=== PATIENT | male | born 1980 | race African-American/Black ===

== ENCOUNTER 2018-08-03 09:02 | Emergency (ER) | payer OTHER ==
[2018-08-03 09:08] VITALS: RESP 18; TEMP 98.1
[2018-08-03] MEDS ORDERED: IPRATROPIUM-ALBUTEROL 3 ML NEB INHALATION STA ×2 (09:21→10:16)
[2018-08-03] MEDS ORDERED: methylPREDNISolone SOD SUCCI 125 MG/2 ML VIAL IM STA (09:21)
--- NOTE | 2018-08-03 09:25 | ED ---
General Adult HPI - General Chief complaint: Shortness of Breath Stated complaint: asthma Time Seen by Provider: 08/03/18 09:18 Source: patient, RN notes reviewed Mode of arrival: ambulatory Limitations: no limitations - History of Present Illness Initial comments: Patient 38-year-old male presenting to the emergency room today with a chief complaint of increased cough congestion over the last 5-7 days. Patient does admit that it is his asthma acting up. States he ran out of his inhaler. States is new to the area and is trying to establish with a family doctor. Patient doesn't that he's had increased cough congestion production it's been white in color at times. Patient also admits to headache that started this morning after coughing bouts. Patient denies any other complaints or symptoms. Patient denies any recent fever, chills, chest pain, back pain, abdominal pain, nausea or vomiting, numbness or tingling, visual changes, or any other complaints. - Related Data Home Medications Medication Instructions Recorded Confirmed Albuterol Inhaler [Ventolin Hfa 2 puff INHALATION RT-Q6H PRN 08/03/18 08/03/18 Inhaler] Amoxicillin Unknown Dose 1 cap PO ONCE 08/03/18 08/03/18 Previous Rx's Medication Instructions Recorded Albuterol Inhaler [Ventolin Hfa 1 - 2 puff INHALATION Q4-6H PRN #1 08/03/18 Inhaler] inhaler Azithromycin [Zithromax] 500 mg PO DAILY 5 Days tab 08/03/18 predniSONE 50 mg PO DAILY #5 tab 08/03/18 Allergies Allergy/AdvReac Type Severity Reaction Status Date / Time shellfish derived [Shellfish] Allergy Anaphylaxis Verified 08/03/18 09:45 diphenhydramine AdvReac Rash/Hives Verified 08/03/18 09:45 [From Benadryl] Review of Systems ROS Statement: Those systems with pertinent positive or pertinent negative responses have been documented in the HPI. ROS Other: All systems not noted in ROS Statement are negative. Past Medical History Past Medical History: Asthma History of Any Multi-Drug Resistant Organisms: None Reported Past Surgical History: Ear Surgery, Orthopedic Surgery Past Psychological History: ADD/ADHD, Bipolar Smoking Status: Current every day smoker Past Alcohol Use History: Occasional Past Drug Use History: Marijuana General Exam - General Exam Comments Initial Comments: General: The patient is awake and alert, in no distress, and does not appear acutely ill. Eye: Pupils are equal, round and reactive to light. Extra-ocular movements are intact. No nystagmus. There is normal conjunctiva bilaterally. No signs of icterus. Ears, nose, mouth and throat: There are moist mucous membranes and no oral lesions. Neck: The neck is supple, there is no tenderness or JVD. Cardiovascular: There is a regular rate and rhythm. No murmur, rub or gallop is appreciated. Respiratory: Bilateral expiratory wheeze. respirations are non-labored, breath sounds are equal. No stridor, rales, or rhonchi. Musculoskeletal: Normal ROM, no tenderness. Sensation intact. Strength 5/5. Pulses equal bilaterally 2+. Neurological: A&O x 3. CN II-XII intact, There are no obvious motor or sensory deficits. Coordination appears grossly intact. Speech is normal. Skin: Skin is warm and dry and no rashes or lesions are noted. Psychiatric: Cooperative, appropriate mood & affect, normal judgment. Limitations: no limitations Course Vital Signs 08/03/18 08/03/18 08/03/18 09:03 09:38 09:48 Temperature 98.1 F Pulse Rate 99 88 92 Respiratory 18 Rate Blood Pressure 115/75 O2 Sat by Pulse 98 Oximetry 08/03/18 08/03/18 10:24 10:34 Temperature Pulse Rate 84 86 Respiratory Rate Blood Pressure O2 Sat by Pulse Oximetry Medical Decision Making - Medical Decision Making Chest x-ray reviewed negative for any sign of pneumonia. Patient does have improvement of lung sounds after 2 breathing treatments here in the emergency room. Was given dose of steroids. Patient will be continued on steroids, started on antibiotics for asthmatic bronchitis. Advised follow-up family physician return to emergency room if any symptoms increase worsen. Disposition Clinical Impression: Asthmatic bronchitis Disposition: HOME SELF-CARE Condition: Good Instructions: Acute Bronchitis (ED) Additional Instructions: Please use medication as discussed. Please follow-up with family doctor in the next 2 days of symptoms have not improved. Please return to emergency room if the symptoms increase or worsen or for any other concerns. Prescriptions: Albuterol Inhaler [Ventolin Hfa Inhaler] 1 - 2 puff INHALATION Q4-6H PRN #1 inhaler PRN Reason: Cough Azithromycin [Zithromax] 500 mg PO DAILY 5 Days tab predniSONE 50 mg PO DAILY #5 tab Is patient prescribed a controlled substance at d/c from ED?: No Referrals: None,Stated [Primary Care Provider] - 1-2 days Libby Montenegro MD [STAFF PHYSICIAN] - 1-2 days Mario Pollack MD [STAFF PHYSICIAN] - 1-2 days Time of Disposition: 10:47
[2018-08-03] MEDS ORDERED: ACETAMINOPHEN TAB 500 MG TAB PO STA (09:59)
--- NOTE | 2018-08-03 10:38 | XR ---
EXAMINATION TYPE: XR chest 2V DATE OF EXAM: 08/03/2018 COMPARISON: NONE HISTORY: Chest pain TECHNIQUE: Frontal and lateral views of the chest are obtained. FINDINGS: There is no focal air space opacity. No evidence for pneumothorax. No pleural effusion. The cardiac silhouette size is within normal limits. The osseous structures are grossly intact. IMPRESSION: 1. No acute cardiopulmonary process.
[2018-08-03 11:07] VITALS: BP 136/35; PULSE 59
== END 2018-08-03 11:06 | disposition home or self-care (01) ==
LOC: EC 09:02
DX: J45.909 Unspecified asthma, uncomplicated (principal); F17.200 Nicotine dependence, unspecified, uncomplicated; Z88.8 Allergy status to other drugs, medicaments and biological substances; Z91.013 Allergy to seafood
CPT/HCPCS: 94640 ×2; 71046; 99285; 96372; J2930

== ENCOUNTER 2018-09-11 16:33 | Emergency (ER) | payer OTHER ==
--- NOTE | 2018-09-11 17:20 | ED ---
General Adult HPI <Marilee Lovelace - Last Filed: 09/11/18 21:53> <Miguelito Tristan - Last Filed: 09/12/18 01:33> - General Source: patient, RN notes reviewed Mode of arrival: ambulatory Limitations: no limitations <French Mcclelland - Last Filed: 09/12/18 14:24> - General Chief complaint: Psychiatric Symptoms Stated complaint: Mental Health Time Seen by Provider: 09/11/18 16:50 - History of Present Illness Initial comments: Patient's a 38-year-old male presented to the emergency room today wanting a psychiatric evaluation. He does admit that he's been hearing voices. He states he began hearing voices back in 1996 when he was leaving [place] patient states that voices are telling him different things. When asked if he has thoughts of hurting himself or others he states he cannot say. Patient denies any other is equal complaints. Patient denies any recent fever, chills, shortness of breath, chest pain, back pain, abdominal pain, nausea or vomiting, headaches or visual changes, or any other complaints. (French Mcclelland) - Related Data Home Medications Medication Instructions Recorded Confirmed No Known Home Medications 09/12/18 09/12/18 Allergies Allergy/AdvReac Type Severity Reaction Status Date / Time shellfish derived [Shellfish] Allergy Anaphylaxis Verified 09/11/18 17:05 diphenhydramine AdvReac Rash/Hives Verified 09/11/18 17:05 [From Benadryl] Review of Systems ROS Other: All systems not noted in ROS Statement are negative. <Marilee Lovelace - Last Filed: 09/11/18 21:53> ROS Other: All systems not noted in ROS Statement are negative. <Miguelito Tristan - Last Filed: 09/12/18 01:33> ROS Other: All systems not noted in ROS Statement are negative. <Frnech Mcclelland - Last Filed: 09/12/18 14:24> ROS Statement: Those systems with pertinent positive or pertinent negative responses have been documented in the HPI. Past Medical History Past Medical History: Asthma History of Any Multi-Drug Resistant Organisms: None Reported Past Surgical History: Ear Surgery, Orthopedic Surgery Past Psychological History: ADD/ADHD, Bipolar Smoking Status: Current every day smoker Past Alcohol Use History: Occasional Past Drug Use History: Marijuana <French Mcclelland - Last Filed: 09/12/18 14:24> General Exam <Marilee Lovelace - Last Filed: 09/11/18 21:53> <MalcolmMiguelito turcios - Last Filed: 09/12/18 01:33> Limitations: no limitations <French Mcclelland - Last Filed: 09/12/18 14:24> - General Exam Comments Initial Comments: General: The patient is awake and alert, in no distress, and does not appear acutely ill. Eye: There is normal conjunctiva bilaterally. No signs of icterus. Ears, nose, mouth and throat: There are moist mucous membranes and no oral lesions. Neck: The neck is supple. Cardiovascular: There is a regular rate and rhythm. No murmur, rub or gallop is appreciated. Respiratory: Lungs are clear to auscultation, respirations are non-labored, breath sounds are equal. No wheezes, stridor, rales, or rhonchi Musculoskeletal: Normal ROM, no tenderness. Neurological: A&O x 3. CN II-XII intact, There are no obvious motor or sensory deficits. Coordination appears grossly intact. Speech is normal. Skin: Skin is warm and dry and no rashes or lesions are noted. Psychiatric: Cooperative (French Mcclelland) Vital Signs 09/11/18 09/11/18 09/12/18 16:42 18:55 02:02 Temperature 97.7 F 98.1 F Pulse Rate 74 72 70 Respiratory 18 18 18 Rate Blood Pressure 106/71 117/54 112/62 O2 Sat by Pulse 99 100 96 Oximetry 09/12/18 10:57 Temperature 98.0 F Pulse Rate 73 Respiratory 15 Rate Blood Pressure 116/61 O2 Sat by Pulse 98 Oximetry Medical Decision Making - Lab Data Result diagrams: 09/12/18 01:50 09/12/18 01:50 <French Mcclelland - Last Filed: 09/12/18 14:24> - Medical Decision Making Patient is a 38-year-old male who presents emergency department today for psychiatric evaluation. Patient was having flight of ideas, and quite agitated. It is evident Patient was hearing voices with eyes darting. Patient is medically clear by French RENDON. Patient's case was transferred to myself at 8 PM. After Patient was evaluated by EPS they recommended Patient received IM Geodon and Ativan to help calm the Patient down. He was evaluated afterwards and is resting comfortably in bed. Patient was petitioned. Clinical certification was filled out by Dr. Wu. (Marilee Lovelace) I saw the patient for the purposes of filing a medical certificate. (Miguelito Tristan) - Lab Data Lab Results 09/11/18 09/12/18 09/12/18 Range/Units 17:20 01:50 01:50 WBC 8.7 (3.8-10.6) k/uL RBC 4.53 (4.30-5.90) m/uL Hgb 14.3 (13.0-17.5) gm/dL Hct 44.2 (39.0-53.0) % MCV 97.5 (80.0-100.0) fL MCH 31.7 (25.0-35.0) pg MCHC 32.5 (31.0-37.0) g/dL RDW 13.0 (11.5-15.5) % Plt Count 238 (150-450) k/uL Neutrophils % 56 % Lymphocytes % 30 % Monocytes % 6 % Eosinophils % 4 % Basophils % 1 % Neutrophils # 4.9 (1.3-7.7) k/uL Lymphocytes # 2.7 (1.0-4.8) k/uL Monocytes # 0.5 (0-1.0) k/uL Eosinophils # 0.4 (0-0.7) k/uL Basophils # 0.1 (0-0.2) k/uL Sodium 140 (137-145) mmol/L Potassium 4.6 (3.5-5.1) mmol/L Chloride 111 H (98-107) mmol/L Carbon Dioxide 22 (22-30) mmol/L Anion Gap 7 mmol/L BUN 19 (9-20) mg/dL Creatinine 1.06 (0.66-1.25) mg/dL Est GFR (CKD-EPI)AfAm >90 (>60 ml/min/1.73 sqM) Est GFR (CKD-EPI)NonAf 90 (>60 ml/min/1.73 sqM) Glucose 106 H (74-99) mg/dL Calcium 9.5 (8.4-10.2) mg/dL Total Bilirubin 0.3 (0.2-1.3) mg/dL AST 32 (17-59) U/L ALT 22 (21-72) U/L Alkaline Phosphatase 62 (38-126) U/L Total Protein 6.4 (6.3-8.2) g/dL Albumin 3.9 (3.5-5.0) g/dL Urine Opiates Screen Not Detected (NotDetected) Ur Oxycodone Screen Not Detected (NotDetected) Urine Methadone Screen Not Detected (NotDetected) Ur Propoxyphene Screen Not Detected (NotDetected) Ur Barbiturates Screen Not Detected (NotDetected) U Tricyclic Antidepress Not Detected (NotDetected) Ur Phencyclidine Scrn Not Detected (NotDetected) Ur Amphetamines Screen Not Detected (NotDetected) U Methamphetamines Scrn Not Detected (NotDetected) U Benzodiazepines Scrn Not Detected (NotDetected) Urine Cocaine Screen Not Detected (NotDetected) U Marijuana (THC) Screen Detected H (NotDetected) Disposition <Marilee Lovelace - Last Filed: 09/11/18 21:53> Is patient prescribed a controlled substance at d/c from ED?: No <Miguelito Tristan - Last Filed: 09/12/18 01:33> Is patient prescribed a controlled substance at d/c from ED?: No Time of Disposition: 14:24 <French Mcclelland - Last Filed: 09/12/18 14:24> Clinical Impression: Acute psychosis Disposition: TRANSFER TO PSYCH HOSP/UNIT Condition: Fair Referrals: Nonstaff,Physician [Primary Care Provider] - 1-2 days
[2018-09-11 17:49] LABS: Amphetamine Screen,Urine Not Detected (NotDetected); Barbiturate Screen,Urine Not Detected (NotDetected); Benzodiazepines Screen,Urine Not Detected (NotDetected); Cocaine Screen,Urine Not Detected (NotDetected); Methadone Screen, Urine Not Detected (NotDetected); Opiate Screen,Urine Not Detected (NotDetected); Oxycodone Screen, Urine Not Detected (NotDetected); Phencyclidine Screen,Urine Not Detected (NotDetected); Tricyclic Antidepressant,Urine Not Detected (NotDetected); Urn Cannabinoid Scrn Detected (NotDetected)
[2018-09-11] MEDS ORDERED: LORazepam 2 MG/ML INJ IM STA (20:29)
[2018-09-11] MEDS ORDERED: ZIPRASIDONE 20 MG VIAL IM STA (20:29)
[2018-09-12 02:13] LABS: Basophils # (A) 0.1 k/uL (0-0.2); Basophils % (A) 1 %; Eosinophils # (A) 0.4 k/uL (0-0.7); Eosinophils % (A) 4 %; HCT 44.2 % (39.0-53.0); HGB 14.3 gm/dL (13.0-17.5); Lymphocytes # (A) 2.7 k/uL (1.0-4.8); Lymphocytes % (A) 30 %; MCH 31.7 pg (25.0-35.0); MCHC 32.5 g/dL (31.0-37.0); MCV 97.5 fL (80.0-100.0); Monocytes # (A) 0.5 k/uL (0-1.0); Monocytes % (A) 6 %; Neutrophils # (A) 4.9 k/uL (1.3-7.7); Neutrophils % (A) 56 %; Platelet Count 238 k/uL (150-450); RBC 4.53 m/uL (4.30-5.90); WBC 8.7 k/uL (3.8-10.6)
[2018-09-12 02:27] LABS: ALT 22 U/L (21-72); AST 32 U/L (17-59); Albumin 3.9 g/dL (3.5-5.0); Alkaline Phosphatase 62 U/L (38-126); Anion Gap 7 mmol/L; Blood Urea Nitrogen 19 mg/dL (9-20); Calcium 9.5 mg/dL (8.4-10.2); Carbon Dioxide 22 mmol/L (22-30); Chloride 111 mmol/L (98-107); Glucose 106 mg/dL (74-99); Potassium 4.6 mmol/L (3.5-5.1); Sodium 140 mmol/L (137-145); Total Bilirubin 0.3 mg/dL (0.2-1.3); Total Protein 6.4 g/dL (6.3-8.2)
[2018-09-12 15:44] LABS: Appearance,Urine Clear (Clear); Bilirubin,Urine Negative (Negative); Blood,Urine Negative (Negative); Color,Urine Colorless; Glucose,Urine (UA) Negative (Negative); Ketones,Urine Negative (Negative); Leukocyte Esterase,Urine Negative (Negative); Nitrite,Urine Negative (Negative); Protein,Urine Negative (Negative); Specific Gravity,Urine 1.002 (1.001-1.035); Urobilinogen,Urine <2.0 mg/dL (<2.0)
[2018-09-12 17:11] VITALS: BP 122/88; PULSE 65; RESP 16; TEMP 97.8
== END 2018-09-12 17:10 ==
LOC: EC 16:33
DX: F23 Brief psychotic disorder (principal); F17.200 Nicotine dependence, unspecified, uncomplicated; Z91.013 Allergy to seafood; Z88.8 Allergy status to other drugs, medicaments and biological substances
CPT/HCPCS: 82075; 36415; 80053; 85025; 81003; 80306; 99285; 96372 ×2; J2060; J3486